=== PATIENT | male | born 1975 | race Caucasian/White ===

== ENCOUNTER 2019-10-14 13:30 | Emergency (ER) | payer OTHER ==
[~2019-10-14] VITALS: Ht 182.9 cm; Wt 82.1 kg
[2019-10-14] MEDS ORDERED: HYDROMORPHONE 1 MG/1 ML DISP.SYRIN ONE ×3 (13:42→14:45)
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
[2019-10-14] MEDS ORDERED: HYDROMORPHONE 1 MG/1 ML DISP.SYRIN IV ONE ×3 (13:45→14:45)
--- NOTE | 2019-10-14 13:50 | NUR ---
ERMD at bedside for MSE
[2019-10-14] MEDS ORDERED: LORAZEPAM 2 MG/1 ML VIAL ONE ×2 (13:58→15:00)
[2019-10-14] MEDS ORDERED: LORAZEPAM 2 MG/1 ML VIAL IV ONE ×2 (14:00→15:00)
--- NOTE | 2019-10-14 14:26 | NUR ---
Regine william in [facility] - 10/14/19 at 1549 by [id number] Patient back from with
[2019-10-14] MEDS ORDERED: ONDANSETRON 4 MG/2 ML VIAL ONE ×2 (16:07→16:51)
[2019-10-14] MEDS ORDERED: ONDANSETRON 4 MG/2 ML VIAL IV ONE ×2 (16:15→16:45)
--- NOTE | 2019-10-14 16:39 | NUR ---
Patient in bed asleep with eyes closed, VSS NAD
[2019-10-14] MEDS ORDERED: PROPOFOL 200 MG/20 ML BOTTLE ONE (17:00)
[2019-10-14] MEDS ORDERED: PROPOFOL 200 MG/20 ML BOTTLE IV ONE (17:00)
[2019-10-14] MEDS ORDERED: KETAMINE HCL 500 MG/10 ML INJ IV ONE (17:00)
[2019-10-14] MEDS ORDERED: KETAMINE HCL 500 MG/10 ML INJ ONE (17:00)
--- NOTE | 2019-10-14 18:42 | NUR ---
Patient in bed NAD, VSS
--- NOTE | 2019-10-14 18:45 | NUR ---
Spoke to , John Paul phone # [phone]: states that she will be here in 10 minutes to pick him up.
--- NOTE | 2019-10-14 19:06 | NUR ---
Recieved report from Zachariah. Patient in [facility], s/p shoulder reduction. Patient easily arousable. Assisted patient to sitting position, and patient c/o of feeling nauseous. Dr. Ahuja made aware.
--- NOTE | 2019-10-14 19:06 | NUR ---
Report given to JESUS Du
[2019-10-14] MEDS ORDERED: METOCLOPRAMIDE HCL 10 MG/2 ML VIAL ONE (19:08)
[2019-10-14] MEDS ORDERED: METOCLOPRAMIDE HCL 10 MG/2 ML VIAL IM ONE (19:15)
--- NOTE | 2019-10-14 19:36 | NUR ---
Patient noted still nauseous and vomitted x 1. MD aware.
--- NOTE | 2019-10-14 20:10 | NUR ---
Patient discharged to home in stable conditon. IV removed. Catheter intact and site benign. Pressure and 4x4 gauze applied to site. No bleeding noted. Written and verbal after care instructions given. Patient verbalizes understanding of instructions. Patient ambulated with stable gait. Left ER in care of , no acute distress noted.
[2019-10-14 20:12] VITALS: BP 128/76
== END 2019-10-14 20:10 | disposition home or self-care (01) ==
LOC: ER 13:34
DX: S43.015A Anterior dislocation of left humerus, initial encounter (principal); Z60.2 Problems related to living alone; V09.9XXA Pedestrian injured in unspecified transport accident, initial encounter; Y93.55 Activity, bike riding; Y92.410 Unspecified street and highway as the place of occurrence of the external cause; Y99.8 Other external cause status
CPT/HCPCS: 23650; 71250; 73020; 73030; 96372; 96374; 96375; 96376; 99285; J1170 ×3; J2060 ×2; J2405 ×2; J2765; J3490; 73200; A4663